=== PATIENT | male | born 1970 | race Caucasian/White ===

== ENCOUNTER → 2021-01-22 12:41 | Outpatient (CLI) | payer OTHER, SELFPAY ==
--- NOTE | 2021-01-22 12:51 | MRI_ITS ---
STUDY: MRI BRAIN WITH AND WITHOUT CONTRAST REASON FOR EXAM: Male, 50 years old. DIPLOPIA,LEFT CN IV PALSY TECHNIQUE: Standardized multiplanar fat and water weighted pulse sequences were obtained. IV dotarem 14ml was administered for the contrast portion of the examination. COMPARISON: None. FINDINGS: Normal size of the ventricles and extra-axial spaces for the patient''s age. There are multiple white matter hyperintensities, distributed throughout the deep white matter tracts of the cerebral hemispheres, consistent with moderate chronic white matter ischemic changes. Normal bilateral basal ganglia. Normal thalami. There is no extra-axial fluid accumulation. Normal flow voids within the major intracranial circulation suggesting patency by spin echo criteria. Normal venous enhancement. There is no enhancing intra-axial or extra-axial abnormality. Normal sella turcica, pituitary gland, infundibular stalk, optic chiasm and hypothalamus. Normal tectal plate and pineal gland. Normal midbrain, sea and medulla. Normal cerebellum. Normal basal cisterns. Normal bilateral temporal bones. Normal bilateral internal auditory canals. No demonstrated orbital abnormality, within the constraints of a routine brain study. Normal visualized paranasal sinuses. Normal calvarium and skull base. Normal visualized soft tissue structures. Normal visualized upper cervical spine. MRI/Brain W/WO Contrast IMPRESSION: Involutional changes of the brain, as described above. There is no definite abnormality in the brainstem, cavernous sinuses. There is no abnormal enhancement along the course of the trochlear nerves. Electronically Signed: Tobin Santiago MD at 7:44 EDT Tel , Service support ,
== END ==
PROVIDERS: PCP Internal Medicine; Referring Provider Ophthalmology; Visit Provider Ophthalmology
DX: H53.2 Diplopia (principal); H49.12 Fourth [trochlear] nerve palsy, left eye
CPT/HCPCS: 70553; A9575

== ENCOUNTER → 2022-08-05 | Outpatient (CLI) | payer OTHER, SELFPAY ==
[2022-08-05 16:47] LABS: EST Glomerular Filtration Rate 67 mL/min (>60); Est Glom Filt Rate - Afr Amer 81 mL/min (>60)
== END | disposition home or self-care (01) ==
LOC: LAB 16:00
PROVIDERS: PCP Internal Medicine; Referring Provider Orthopaedic Surgery; Visit Provider Orthopaedic Surgery
DX: L50.1 Idiopathic urticaria (principal)
CPT/HCPCS: 36415; 82565

== ENCOUNTER → 2022-08-08 | Outpatient (CLI) | payer OTHER, SELFPAY ==
--- NOTE | 2022-08-08 14:55 | CT_ITS ---
STUDY: CT CHEST WITHOUT CONTRAST REASON FOR EXAM: Male, 52 years old. SINGLE PULM NODULE RADIATION DOSAGE (If Supplied By Facility): CTDIvol = ( 9.63 ) mGy, DLP = ( 304.90 ) mGycm TECHNIQUE: Transaxial imaging was performed without the administration of intravenous contrast material. Multiplanar coronal and sagittal images were reformatted. Individualized dose optimization techniques were used for this CT. COMPARISON: No relevant priors. FINDINGS: CHEST Focal linear scar is seen in the left lung apex. There is a 1 cm cavitated nodule with slightly irregular margins in the anterior lateral aspect of the right upper lobe as seen on axial image #23. A similar-appearing cystic nodules also seen in the posterior aspect of the right upper lobe as seen on axial image #29. This measures 9.7 mm. There is no demonstrated pleural abnormality. Normal heart and pericardium. Normal mediastinum. Normal hilar regions. Normal unenhanced pulmonary arteries. Normal aorta arch and descending thoracic aorta. There are multi-level degenerative changes of the thoracic spine. Diffuse fatty infiltration of the liver. CT/Chest WITH Contrast IMPRESSION: 2 tiny cavitated nodules are seen in the right upper lobe as described. This may represent either infected bulla versus septic emboli. A repeat CT chest in 3 months is recommended. Electronically Signed: Jorge Kelly MD at 15:22 EST ,
== END | disposition home or self-care (01) ==
LOC: CT 14:51
PROVIDERS: PCP Internal Medicine; Visit Provider Orthopaedic Surgery
DX: R91.1 Solitary pulmonary nodule (principal); R91.8 Other nonspecific abnormal finding of lung field
CPT/HCPCS: 71260; Q9967

== ENCOUNTER → 2022-08-22 | Outpatient (CLI) | payer OTHER, SELFPAY ==
[2022-08-22 17:58] LABS: CRP < 2.90 mg/L (0.0-3.0)
[2022-08-22 18:20] LABS: Absolute Lymphocyte Count 1.75 X10^3/uL (0.83-4.51); Absolute Neutrophil Count 3.4 X10^3/uL (2.0-7.7); Basophil# 0.03 X10^3/uL; Basophil% 0.5 % (0-1); Eosinophil# 0.08 X10^3/uL; Eosinophils% 1.4 % (0-5); Hematocrit 42.8 % (40-54); Hemoglobin 15.2 g/dL (13.0-16.5); Lymphocyte # 1.75 X10^3/ul (0.83-4.51); Lymphocyte % 30.9 % (19-41); Mean Corp Hgb Conc 35.5 g/dL (32-36); Mean Corpuscular Hgb 30.4 pg (27.0-32.0); Mean Corpuscular Volume 85.6 fL (80-94); Mean Platelet Vol. 11.5 fl (6.2-12.0); Monocyte# 0.38 X10^3/uL; Monocyte% 6.7 % (0-10); NRBC Flagged by Analyzer 0 % (0-5); Neutrophil # 3.42 X10^3/uL (2.7-7.7); Neutrophil % 60.3 % (47-70); Platelet Count 233 K/mm3 (150-450); RBC Distribution Width CV 11.9 % (11.6-14.6); RBC Distribution Width SD 37.1 fl (35.1-43.9); White Blood Count 5.7 K/mm3 (4.4-11.0)
[2022-08-22 18:32] LABS: Erythrocyte Sedimentation Rate 6 mm/hr (0-20)
[2022-08-24 16:08] LABS: QNTFERON TB Mitogen Value > 10.00 IU/mL (.); QNTFERON TB Nil Value 0.01 IU/mL (.); QNTFERON TB1+ Ag Value 0.02 IU/mL (.); QNTFERON TB2+ Ag Value 0.01 IU/mL (.)
[2022-08-24 22:19] LABS: QNTIFERON TB Positive Criteria Negative (Negative)
== END | disposition home or self-care (01) ==
LOC: LAB 16:14
PROVIDERS: PCP Internal Medicine; Referring Provider Internal Medicine Pulmonary Disease; Visit Provider Internal Medicine Pulmonary Disease
DX: R05.9 Cough, unspecified (principal); R06.02 Shortness of breath
CPT/HCPCS: 36415; 84153; 85025; 85652; 86140; 86480; 87040

== ENCOUNTER → 2022-11-22 | Outpatient (CLI) | payer OTHER, SELFPAY ==
--- NOTE | 2022-11-22 15:12 | CT_ITS ---
INDICATION: ABNORMAL LUNG FINDING EXAMINATION: CT CHEST WITHOUT CONTRAST - CT Chest W/O Contrast Injection TECHNIQUE: Helically acquired images were obtained of the chest. A radiation dose optimization technique was used for this scan. IV Contrast dosage and agent: None. COMPARISON: CT of the chest August 08, 2022 FINDINGS: LUNGS, PLEURA AND LARGE AIRWAYS: Lungs are clear compression. There are 2 small thin-walled cavitary nodules with eccentric wall thickening on one side measuring approximately 1.2 x 1.2 cm and 1.25 x 1.1 cm No pleural effusion or thickening. No pneumothorax. THYROID: No thyroid lesions. HEART AND PERICARDIUM: Heart size is normal. No pericardial effusion. CORONARY ARTERIES: Coronary artery calcification VESSELS: Minor atherosclerotic changes of the aorta without evidence for aneurysm MEDIASTINUM AND ROSA: No mediastinal or hilar adenopathy. Esophagus is unremarkable. No hiatal hernia. UPPER ABDOMEN: No acute pathology. BONES: Dorsal spine demonstrates arthritic changes. No suspicious lytic or blastic abnormality. The right upper lobe nodules are not changed appreciably in size since the study. Recommend follow-up imaging utilizing Fleischner Society criteria CT/Chest without Contrast IMPRESSION: Persistent stable appearing right upper lobe nodules. No acute abnormality or significant change since previous exam Electronically Signed: Reed Brock MD at 20:38 EDT Reading Location ID and State: [facility] / [place] , Service support ,
[2022-11-22 15:49] LABS: Erythrocyte Sedimentation Rate 6 mm/hr (0-20)
[2022-11-22 15:50] LABS: Absolute Lymphocyte Count 1.75 X10^3/uL (0.83-4.51); Absolute Neutrophil Count 3.2 X10^3/uL (2.0-7.7); Basophil# 0.03 X10^3/uL; Basophil% 0.5 % (0-1); Eosinophil# 0.11 X10^3/uL; Hemoglobin 15.7 g/dL (13.0-16.5); Lymphocyte # 1.75 X10^3/ul (0.83-4.51); Lymphocyte % 31.4 % (19-41); Mean Corp Hgb Conc 34.9 g/dL (32-36); Mean Corpuscular Hgb 30.1 pg (27.0-32.0); Mean Corpuscular Volume 86.2 fL (80-94); Mean Platelet Vol. 10.5 fl (6.2-12.0); Monocyte# 0.45 X10^3/uL; Monocyte% 8.1 % (0-10); NRBC Flagged by Analyzer 0 % (0-5); Neutrophil # 3.23 X10^3/uL (2.7-7.7); Neutrophil % 57.8 % (47-70); Platelet Count 217 K/mm3 (150-450); RBC Distribution Width CV 12.1 % (11.6-14.6); RBC Distribution Width SD 38.1 fl (35.1-43.9); Red Blood Count 5.22 M/mm3 (4.6-6.2); White Blood Count 5.6 K/mm3 (4.4-11.0)
[2022-11-22 16:11] LABS: CRP < 2.90 mg/L (0.0-3.0); Rheumatoid Factor < 10.0 IU/mL (<15)
[2022-11-25 15:08] LABS: ANTINUCLEAR ANTIBODIES DIRECT Negative (Negative); Anti-dsDNA Ab <1 IU/mL (0-9)
[2022-12-03 15:08] LABS: CCP IgG Antibodies 2 units (0-19); Cytoplasmic Ab (C-ANCA) <1:20 titer (Neg:<1:20); HLA B27 Negative (.); Lyme Scn Total Ab w/Rflx Negative (Negative); Perinuclear Ab (P-ANCA) <1:20 titer (Neg:<1:20)
== END | disposition home or self-care (01) ==
LOC: CT 15:09
PROVIDERS: Orthopaedic Surgery; PCP Internal Medicine; Referring Provider Internal Medicine Pulmonary Disease; Visit Provider Internal Medicine Pulmonary Disease
DX: R91.8 Other nonspecific abnormal finding of lung field (principal); M48.10 Ankylosing hyperostosis [Forestier], site unspecified
CPT/HCPCS: 71250; 81374; 85025; 85652; 86038; 86140; 86200; 86225; 86256; 86431; 86618

== ENCOUNTER → 2023-03-14 | Outpatient (CLI) | payer OTHER, SELFPAY ==
--- NOTE | 2023-03-14 08:26 | MRI_ITS ---
EXAM: MR LUMBAR SPINE WITHOUT INTRAVENOUS CONTRAST CLINICAL INDICATION: pain, radiculopathy legs TECHNIQUE: Multiplanar and multisequence MR images of the lumbar spine without intravenous contrast. COMPARISON: No relevant prior studies available. FINDINGS: VERTEBRAE: Mild endplate deformities of L1, L2 and L3. Vertebral body heights are otherwise preserved. No bone marrow edema. Normal alignment. No spondylolisthesis. There is preservation of the normal lumbar lordosis. Prominent anterior vertebral body osteophytosis. SPINAL CORD: Normal. Normal position and signal intensity of the conus medullaris. SOFT TISSUES: Normal. DISCS/SPINAL CANAL/NEURAL FORAMINA: L1-L2: Normal disc height and morphology. Normal spinal canal and lateral recesses. Normal neuroforamina. L2-L3: Normal disc height. Normal spinal canal and lateral recesses. Normal neuroforamina. L3-L4: Normal disc. Normal spinal canal and lateral recesses. Bilateral neural foraminal narrowing related to facet arthropathy. L4-L5: Normal. Normal disc height and morphology. Normal spinal canal and lateral recesses. Mild neural foraminal narrowing related to facet arthropathy. L5-S1: No significant disc space narrowing. Normal spinal canal and lateral recesses. Mild neural foraminal narrowing related to facet arthropathy. MRI/Spine Lumbar (Routine) IMPRESSION: No disc herniation. Normal caliber spinal canal. Multilevel neural foraminal narrowing related to facet arthropathy. Electronically Signed: Alex Doherty MD at 17:06 EDT ,
== END | disposition home or self-care (01) ==
LOC: MRI 08:09
PROVIDERS: PCP Internal Medicine; Referring Provider Orthopaedic Surgery; Visit Provider Orthopaedic Surgery
DX: M45.9 Ankylosing spondylitis of unspecified sites in spine (principal)
CPT/HCPCS: 72148

== ENCOUNTER → 2023-05-26 | Outpatient (CLI) | payer OTHER, SELFPAY ==
--- NOTE | 2023-05-26 16:09 | CT_ITS ---
INDICATION: ABN FINDING LUNG FIELD EXAMINATION: CT CHEST WITHOUT CONTRAST - CT Chest W/O Contrast Injection TECHNIQUE: Helically acquired images were obtained of the chest. A radiation dose optimization technique was used for this scan. IV Contrast dosage and agent: None. RADIATION DOSAGE (If Supplied By Facility): CTDIvol = ( 8.55 ) mGy, DLP = ( 297.14 ) mGycm COMPARISON: Prior study dated: 11/22/2022 FINDINGS: LUNGS, PLEURA AND LARGE AIRWAYS: The central airways are patent. No dense consolidation. The previously seen cavitating nodules are again noted. The more posterior nodule remains cavitating and is unchanged from prior measuring 1.3 cm on series 2 image 33. The more anterior nodule is likely fluid-filled at this time, no longer with internal gas. This is similar in size to prior measuring 1.1 cm on image 29. There are no new pulmonary nodules identified. No pleural effusion or thickening. No pneumothorax. THYROID: No thyroid lesions. HEART AND PERICARDIUM: Heart size is normal. No pericardial effusion. CORONARY ARTERIES: Coronary artery calcification is not seen. VESSELS: Thoracic aorta is not dilated. MEDIASTINUM AND ROSA: No mediastinal or hilar adenopathy. Esophagus is unremarkable. No hiatal hernia. UPPER ABDOMEN: No acute pathology. BONES: No suspicious lytic or blastic abnormality. Degenerative change throughout the spine. DISH. CT/Chest without Contrast IMPRESSION: Previously visualized cavitating right upper lobe pulmonary nodules are again noted with similar appearance of the posterior nodule, with persistent cavitation. The anterior nodule is similar in size to prior, no longer with internal gas. This is likely fluid-filled. No new pulmonary nodules are seen. Electronically Signed: Jacob Colorado MD at 22:34 EST ,
== END | disposition home or self-care (01) ==
LOC: CT 16:07
PROVIDERS: PCP Internal Medicine; Referring Provider Internal Medicine Pulmonary Disease; Visit Provider Internal Medicine Pulmonary Disease
DX: R91.8 Other nonspecific abnormal finding of lung field (principal)
CPT/HCPCS: 71250

== ENCOUNTER → 2023-07-23 | Outpatient (CLI) | payer OTHER, SELFPAY ==
--- NOTE | 2023-07-23 12:36 | NEURO ---
NCS and/or EMG Patient Report Ordering Doctor: Esau Acuña DATE OF SERVICE: 07/23/23 Anthony presents for electrodiagnostic testing of the lower limbs. He reports a one year history of low back and lower extremity pain. He reports continued pain in both thighs. Electrodiagnostic findings: Right peroneal motor nerve demonstrates borderline prolonged latency with borderline reduced amplitude and borderline reduced conduction velocity. Left peroneal motor nerve demonstrates normal distal latency and amplitude with borderline reduced conduction velocity. Right tibial motor responses within normal limits. Left tibial motor responses within normal limits. Normal right tibial and peroneal F?waves. Borderline prolonged H?reflex bilaterally. Sensory responses are within normal limits. Needle EMG testing was performed in the lower limbs. All muscles tested showed no evidence of denervation with normal motor unit action potentials. Electrodiagnostic Impression: This is a normal electrodiagnostic study in the lower limbs. There is no electrodiagnostic evidence for peripheral neuropathy or lumbosacral radiculopathy. Multi Select Codes Neurology Neurology Interp Codes: 41388-49 Musc test done w/n test comp (interp) (2) and 77064-67 Nrv cndj test 11-12 studies (interp)
== END | disposition home or self-care (01) ==
LOC: PSN 08:32
PROVIDERS: PCP Internal Medicine; Referring Provider Orthopaedic Surgery; Visit Provider Orthopaedic Surgery
DX: M79.2 Neuralgia and neuritis, unspecified (principal)
CPT/HCPCS: 95886; 95912

== ENCOUNTER → 2023-12-06 | Outpatient (CLI) | payer OTHER, SELFPAY ==
--- NOTE | 2023-12-06 07:49 | CT_ITS ---
HISTORY: NONSPECIFIC ABNORMAL FINDING OF LUNG. TECHNIQUE: Helically acquired images were obtained of the chest without contrast. A radiation dose optimization technique was used for this scan. 796 images. COMPARISON: 05/26/2023, 11/22/2022. FINDINGS: LARGE AIRWAYS: Patent. LUNGS: Stable 1.5 cm oval noncalcified nodule abutting the pleura in the right upper lobe with a stable 1.2 cm cavitary or cystic nodule posteriorly. No new suspicious nodule or acute alveolar consolidation. PLEURA: No pneumothorax or significant pleural effusion. HEART/PERICARDIUM: Heart within normal limits in size. No significant coronary artery calcification. No pericardial effusion. VESSELS: Thoracic aorta nondilated. Mild atherosclerosis. MEDIASTINUM/ROSA: No pathologically enlarged adenopathy. UPPER ABDOMEN: Unremarkable. BONES: Old right clavicle fracture. Degenerative change. CT/Chest without Contrast IMPRESSION: No significant interval change in size of solid 1.5 cm and cavitary 1.2 cm right upper lobe nodules compared to recent prior. Recommend continued follow-up. Electronically Signed: Eloisa Wynn MD at 13:06 EDT ,
== END | disposition home or self-care (01) ==
LOC: CT 08:48
PROVIDERS: PCP Internal Medicine; Referring Provider Internal Medicine Pulmonary Disease; Visit Provider Internal Medicine Pulmonary Disease
DX: R91.8 Other nonspecific abnormal finding of lung field (principal)
CPT/HCPCS: 71250

== ENCOUNTER → 2024-01-13 | Outpatient (CLI) | payer OTHER, SELFPAY | END | disposition home or self-care (01) | LOC: ONC 08:20 | PROVIDERS: PCP Internal Medicine; Referring Provider Internal Medicine Pulmonary Disease; Visit Provider Internal Medicine Pulmonary Disease | DX: R91.1 Solitary pulmonary nodule (principal) ==

== ENCOUNTER → 2024-01-13 | Outpatient (CLI) | payer OTHER, SELFPAY ==
[2024-01-13 12:47] LABS: Hematocrit 43.8 % (40-54); Hemoglobin 15.3 g/dL (13.0-16.5); Mean Corp Hgb Conc 34.9 g/dL (32-36); Mean Corpuscular Volume 85.9 fL (80-94); Platelet Count 177 K/mm3 (150-450); RBC Distribution Width CV 12.1 % (11.6-14.6); RBC Distribution Width SD 37.9 fl (35.1-43.9); White Blood Count 4.8 K/mm3 (4.4-11.0)
[2024-01-13 13:01] LABS: Vitamin B12 742 pg/mL (211-911)
[2024-01-13 13:23] LABS: ALB/GLOB Ratio 1.2 RATIO (0.9-2.4); AST(SGOT) 26 U/L (15-37); Alanine Aminotransfer ALT/SGPT 34 U/L (16-61); Alkaline Phosphatase 65 U/L (45-117); Anion Gap 7 (5-15); BUN 17 mg/dL (7-18); BUN/Creat Ratio 19.4 RATIO (10-20); Calcium,Total 9.2 mg/dL (8.5-10.1); Chloride 104 mmol/L (98-107); Creatinine, Serum 0.88 mg/dL (0.70-1.30); EST Glomerular Filtration Rate 96 mL/min (>60); Est Glom Filt Rate - Afr Amer 116 mL/min (>60); Globulin 3.3 g/dL (2.2-4.2); Glucose 236 mg/dL (74-106); Protein, Total 7.3 g/dL (6.4-8.2); Sodium Level 135 mmol/L (136-145); Thyroid Stim Hormone (TSH) 2.21 uIU/mL (0.358-3.74)
[2024-01-16 10:09] LABS: Free Kappa Light Chains 9.3 mg/L (3.3-19.4); Free Lambda Light Chains 8.1 mg/L (5.7-26.3); Vitamin B1, Thiamine 137.7 nmol/L (66.5-200.0)
[2024-01-19 20:11] LABS: Hemoglobin A1c 10.6 % (3.8-5.6)
== END | disposition home or self-care (01) ==
LOC: MTLAB 09:08
PROVIDERS: PCP Internal Medicine; Referring Provider Psychiatry & Neurology Neurology; Visit Provider Psychiatry & Neurology Neurology
DX: G57.13 Meralgia paresthetica, bilateral lower limbs (principal)
CPT/HCPCS: 36415; 80053; 82607; 82746; 83036; 83883; 84425; 84443; 85027

== ENCOUNTER → 2024-03-09 | Outpatient (CLI) | payer OTHER, SELFPAY ==
--- NOTE | 2024-03-09 10:30 | PET_ITS ---
EXAMINATION: FDG PET-CT INDICATIONS: A 53-year-old male with a history of pulmonary nodularity. COMPARISON EXAMINATION: CT of the chest dated 12/06/23. NON-INDEX LESION SIZE SUV INTERPRETATION Right thoracic perihilum 2.4 max Quantitative criteria for viable neoplasm are not fulfilled. TECHNIQUE: Following the intravenous administration of 10.14 mCi of F-18 deoxyglucose via the left antecubital fossa, multiplanar image acquisitions of the head, neck, chest, abdomen and pelvis to level of mid-thigh, lower extremities obtained at one hour post radiopharmaceutical administration contemporaneously interpreted with the current CT of the head, neck, chest, abdomen and pelvis to level of mid-thigh, lower extremities dated 03/09/[address] of the chest dated 12/06/23 reveal: SERUM GLUCOSE LEVEL: 151 mg/dl. HEIGHT: 64 inches. WEIGHT: 140 lbs. FINDINGS: Head/Neck: There is no evidence of abnormal increased glucose metabolism in the pharyngeal mucosal space, parapharyngeal space, bilateral-lateral and anterior neck, hypopharynx and distribution of the laryngeal structures. The visualized portion of the cerebral cortical-subcortical structures demonstrate symmetric and preserved glucose metabolism. CHEST: Facilitated uptake is noted in the right thoracic perihilum generating a calculated maximum standard uptake value of 2.4. The cavitated and solid density noted in the right upper lung field, right upper lobe is ametabolic. Pertinent chest CT findings are as follows. There is atherosclerotic calcification defined in the thoracic aorta without evidence of dilatation-aneurysm formation. Coronary arterial calcification is observed. Right and left axillary soft tissue reveals no evidence of increased tracer uptake. Abdomen/Pelvis: Normal physiologic distribution of the radiopharmaceutical is apparent in the hepatic (2.6) and splenic parenchyma, both renal units, bladder and visualized intestinal tract. Diffuse radiopharmaceutical concentration is noted in all four quadrants of the abdomen and pelvis. Pertinent abdomen and pelvis CT findings are as follows. There is atherosclerotic calcification defined in the abdominal aorta without evidence of dilatation-aneurysm formation. Pelvic arterial calcification is defined. Right and left inguinal soft tissue densities are ametabolic. Calcification is defined within the prostate gland. Calcified phlebolith formation is noted in the right lower hemipelvis. Skeletal: Degenerative changes are noted in the cervical, thoracic and lumbar spine. PET/PET/CT Tumor Base -Thigh Init IMPRESSION: 1. NEGATIVE EXAMINATION. There is no definitive quantitative scintigraphic evidence of viable neoplasm. 2. Enhanced tracer uptake noted in the right thoracic perihilum does not fulfill quantitative criteria for viable neoplastic infiltration. 3. The solid and cavitated densities noted in the right upper lung field, right upper lobe demonstrates no evidence of increased tracer uptake. 4. Metabolic, morphologic stability may be ensured in the right lung parenchymal changes with repeat CT of the chest and/or FDG PET imaging in 3-6 months if clinically indicated. Electronic Signature Jai Burt D.O. Accurate Quantification of SUVs for this report are calculated using the exclusive [employer], ([place] Patent No. [phone] [id number] [phone] [phone] [place] patent [phone] ). Standardization and correction of the FDG SUV metric exclusively available with [employer] intellectual property, allow for vendor non-specific objective quantitative sequential FDG PET-CT comparison and otherwise unobtainable optimization of the sensitivity and specificity of the examination. [email or web address] Electronically Signed: Jai Burt DO at 8:08 EDT ,
== END | disposition home or self-care (01) ==
LOC: ONC 10:09
PROVIDERS: PCP Internal Medicine; Referring Provider Internal Medicine Pulmonary Disease; Visit Provider Internal Medicine Pulmonary Disease
DX: R91.1 Solitary pulmonary nodule (principal)
CPT/HCPCS: 78815; A9552

== ENCOUNTER → 2024-04-22 | Outpatient (CLI) | payer OTHER, SELFPAY ==
[2024-04-22 13:32] LABS: Bacteria 0 SEEN /hpf (None Seen); Mucous, Urine 0 SEEN /hpf (<or=2+); Red Blood Cells-Urine 0 SEEN /hpf (0-5); Squamous Epithelial Cells - UA 0 SEEN /hpf (0-5); White Blood Cells 0 SEEN /hpf (0-5)
[2024-04-22 15:13] LABS: Absolute Lymphocyte Count 1.34 X10^3/uL (0.83-4.51); Absolute Neutrophil Count 3.7 X10^3/uL (2.0-7.7); Basophil# 0.02 X10^3/uL; Basophil% 0.4 % (0-1); Eosinophil# 0.06 X10^3/uL; Eosinophils% 1.1 % (0-5); Hematocrit 38.5 % (40-54); Hemoglobin 13.2 g/dL (13.0-16.5); Lymphocyte # 1.34 X10^3/ul (0.83-4.51); Mean Corp Hgb Conc 34.3 g/dL (32-36); Mean Corpuscular Hgb 30.3 pg (27.0-32.0); Mean Corpuscular Volume 88.3 fL (80-94); Mean Platelet Vol. 10.4 fl (6.2-12.0); Monocyte# 0.45 X10^3/uL; Monocyte% 8.1 % (0-10); NRBC Flagged by Analyzer 0 % (0-5); Platelet Count 208 K/mm3 (150-450); RBC Distribution Width CV 12.1 % (11.6-14.6); RBC Distribution Width SD 39.6 fl (35.1-43.9); Red Blood Count 4.36 M/mm3 (4.6-6.2); White Blood Count 5.6 K/mm3 (4.4-11.0)
[2024-04-22 15:30] LABS: Color, Urine Straw (Yellow); Glucose, Dipstick Normal (Normal); Ketone-Dipstick Negative (Negative); Leukocyte Esterase-Dipstick Negative /ul (Negative); Nitrite-Dipstick Negative (Negative); Occult Blood-Urine Negative /ul (Negative); Protein-Dipstick Negative (Negative); Urine Bilirubin Dipstick Negative (Negative); Urine Clarity Clear (Clear); Urine Urobilinogen Normal (Normal)
[2024-04-22 15:31] LABS: ALB/GLOB Ratio 1.4 RATIO (0.9-2.4); AST(SGOT) 13 U/L (15-37); Alanine Aminotransfer ALT/SGPT 19 U/L (16-61); Albumin, Serum 4.3 g/dL (3.2-5.0); Alkaline Phosphatase 49 U/L (45-117); Anion Gap 8 (5-15); BUN 23 mg/dL (7-18); BUN/Creat Ratio 26.9 RATIO (10-20); Calcium,Total 8.9 mg/dL (8.5-10.1); Chloride 104 mmol/L (98-107); Cholesterol 191 mg/dL (200); Creatinine, Serum 0.86 mg/dL (0.70-1.30); EST Glomerular Filtration Rate 99 mL/min (>60); Est Glom Filt Rate - Afr Amer 119 mL/min (>60); Globulin 3.1 g/dL (2.2-4.2); Glucose 107 mg/dL (74-106); High Density Lipoprotein 59 mg/dL; Potassium 3.8 mmol/L (3.5-5.1); Protein, Total 7.4 g/dL (6.4-8.2); Sodium Level 136 mmol/L (136-145); Triglycerides 93 mg/dL; Very Low Density Lipoprotein 19 mg/dL (5-40)
[2024-04-22 16:25] LABS: Microalbumin,Random Urine < 5.0 mg/L (NO RANGE EST.)
[2024-04-22 17:04] LABS: Hemoglobin A1c 6.2 % (3.8-5.6)
== END | disposition home or self-care (01) ==
LOC: MTLAB 13:12
PROVIDERS: PCP Internal Medicine; Referring Provider Internal Medicine; Visit Provider Internal Medicine
DX: E10.9 Type 1 diabetes mellitus without complications (principal)
CPT/HCPCS: 36415; 80053; 80061; 81001; 82043; 82570; 83036; 84443; 85025

== ENCOUNTER → 2024-08-23 | Outpatient (CLI) | payer OTHER, SELFPAY ==
[2024-08-23 11:10] LABS: Cholesterol 223 mg/dL (200); High Density Lipoprotein 67 mg/dL; Triglycerides 160 mg/dL; Very Low Density Lipoprotein 32 mg/dL (5-40)
[2024-08-23 11:37] LABS: Hemoglobin A1c 6.6 % (3.8-5.6)
== END | disposition home or self-care (01) ==
LOC: MTLAB 08:39
PROVIDERS: PCP Internal Medicine; Referring Provider Internal Medicine; Visit Provider Internal Medicine
DX: E11.9 Type 2 diabetes mellitus without complications (principal)
CPT/HCPCS: 36415; 80061; 83036

== ENCOUNTER → 2024-11-26 | Outpatient (CLI) | payer OTHER, SELFPAY ==
[2024-11-26 11:11] LABS: Cholesterol 244 mg/dL (<=200); High Density Lipoprotein 54 mg/dL; Low Density Lipoprotein Calc. 156 mg/dL; Triglycerides 168 mg/dL; Very Low Density Lipoprotein 34 mg/dL (5-40); cholesterol:hdl ratio screen 4.49
[2024-11-26 11:16] LABS: Hemoglobin A1c 7.9 % (<=5.6)
== END | disposition home or self-care (01) ==
LOC: MTLAB 08:55
PROVIDERS: PCP Internal Medicine; Referring Provider Internal Medicine; Visit Provider Internal Medicine
DX: E78.00 Pure hypercholesterolemia, unspecified (principal); E11.9 Type 2 diabetes mellitus without complications
CPT/HCPCS: 36415; 80061; 83036

== ENCOUNTER → 2024-12-29 | Outpatient (CLI) | payer OTHER, SELFPAY ==
--- NOTE | 2024-12-29 17:29 | CT_ITS ---
PROCEDURE: CHEST WITHOUT CONTRAST 12/30/2024 REASON FOR EXAM: LUNG NODULES MULTIPLE TECHNIQUE: Chest CT without contrast. Coronal and Sagittal reconstruction series were provided. One or more dose reduction techniques were used (e.g., Automated exposure control, adjustment of the mA and/or kV according to patient size, use of iterative reconstruction technique RADIATION DOSE SUMMARY: CTDlvol: mGy DLP: mGycm COMPARISON: 09-13-2023 PET/CT FINDINGS: Stable size of the right upper lung lobe irregular shape solid nodule merging with related spiculations. Stable size of the other smaller right upper lobe cavitating nodule currently showing thick wall and endo-cavitary density that could represent fungal ball. No newly developed pulmonary masses, consolidations or cavitary changes. Bilateral pulmonary atelectatic plates. The heart size is within normal. No pleural or pericardial effusion. No pathologically enlarged lymph nodes are noted. No definite mass lesion in the chest wall. Intact bony thoracic cage with no fractures or osseous destruction. The examined vertebrae showing preserved height with no fracture of dislocation. Thoracic spondylosis. Scanned upper abdomen show no abnormalities. CT/Chest without Contrast IMPRESSION: Stable size of the right upper lung lobe irregular shape solid nodule merging w ith related spiculations. Stable size of the other smaller right upper lobe cavitating nodule currently s howing thick wall and endo-cavitary density that could represent fungal ball. No newly developed pulmonary masses, consolidations or cavitary changes. Reading [facility]
== END | disposition home or self-care (01) ==
PROVIDERS: PCP Internal Medicine; Referring Provider Internal Medicine; Visit Provider Internal Medicine
DX: R91.8 Other nonspecific abnormal finding of lung field (principal)
CPT/HCPCS: 71250

== ENCOUNTER → 2025-03-08 | Outpatient (CLI) | payer OTHER, SELFPAY ==
[2025-03-08 15:56] LABS: Cholesterol 242 mg/dL (<=200); Low Density Lipoprotein Calc. 148 mg/dL; Triglycerides 174 mg/dL; Very Low Density Lipoprotein 35 mg/dL (5-40); cholesterol:hdl ratio screen 4.06
== END | disposition home or self-care (01) ==
LOC: MTLAB 12:34
PROVIDERS: PCP Internal Medicine; Referring Provider Internal Medicine; Visit Provider Internal Medicine
DX: E78.00 Pure hypercholesterolemia, unspecified (principal); E11.65 Type 2 diabetes mellitus with hyperglycemia
CPT/HCPCS: 36415; 80061; 83036

== ENCOUNTER → 2025-06-14 | Outpatient (CLI) | payer OTHER, SELFPAY ==
[2025-06-14 10:51] LABS: Hematocrit 40.2 % (40-54); Hemoglobin 13.8 g/dL (13.0-16.5); Immature Granulocytes Count 0.020 X10^3/uL (0.0-0.0); Mean Corp Hgb Conc 34.3 g/dL (32-36); Mean Corpuscular Volume 87.8 fL (80-94); Mean Platelet Vol. 11.1 fl (6.2-12.0); NRBC Flagged by Analyzer 0 % (0-5); Platelet Count 219 K/mm3 (150-450); RBC Distribution Width CV 12.2 % (11.6-14.6); RBC Distribution Width SD 39.3 fl (35.1-43.9); Red Blood Count 4.58 M/mm3 (4.6-6.2); White Blood Count 5.3 K/mm3 (4.4-11.0)
[2025-06-14 11:20] LABS: AST(SGOT) 19 U/L (<=37); Alanine Aminotransfer ALT/SGPT 24 U/L (<=46); Albumin, Serum 4.7 g/dL (3.5-5.0); Alkaline Phosphatase 71 U/L (40-129); Anion Gap 12 (5-15); BUN 19 mg/dL (4-19); BUN/Creat Ratio 20.0 RATIO (10-20); CRP < 3.00 mg/L (0.0-3.0); Calcium,Total 9.7 mg/dL (7.6-11.0); Carbon Dioxide 25.1 mmol/L (21.0-32.0); Chloride 103 mmol/L (98-108); Globulin 2.6 g/dL (2.2-4.2); Glucose 215 mg/dL (70-99); Potassium 4.4 mmol/L (3.3-5.1)
== END | disposition home or self-care (01) ==
LOC: MTLAB 08:07
PROVIDERS: PCP Internal Medicine; Referring Provider Internal Medicine; Visit Provider Internal Medicine
DX: R91.8 Other nonspecific abnormal finding of lung field (principal); R73.9 Hyperglycemia, unspecified
CPT/HCPCS: 36415; 80053; 83036; 85025; 86140